=== PATIENT | female | born 1980 ===

== ENCOUNTER 2025-05-05 06:47 | Outpatient (REF) | payer OTHER, SELFPAY ==
--- NOTE | ~2025-05-05 | US_ITS ---
CLINICAL HISTORY: STRING NOT VISUALIZED ON EXAM, CHECK IUD PLACEMENT US pelvis transvaginal and transabdominal Comparison: None provided Findings: Transvaginal and transabdominal scanning performed. Anteverted uterus is 8.4 cm length. Normal myometrium. No endometrial lesion, 4 mm thickness. IUD appears properly positioned. Right ovary 3.3 x 1.8 x 2.4 cm. Left ovary 3.5 x 2.5 x 3.0 cm. Normal color Doppler of both ovaries. No free fluid. IMPRESSION: 1. IUD is properly positioned within the endometrial canal. Unremarkable pelvic ultrasound. This document has been electronically signed by: Rita Stark MD on 05/06/2025 10:39:57
== END 2025-05-05 06:48 | disposition home or self-care (01) ==
LOC: HO.UMASIMG 06:47
PROVIDERS: Visit Provider Family Medicine
DX: Z30.431 Encounter for routine checking of intrauterine contraceptive device (principal); R71.8 Other abnormality of red blood cells
CPT/HCPCS: 76830; 76856

== ENCOUNTER → 2025-05-05 15:30 | Outpatient (BNV) | payer OTHER, SELFPAY | PROVIDERS: Visit Provider Radiology Diagnostic Radiology | DX: Z30.431 Encounter for routine checking of intrauterine contraceptive device (principal) | CPT/HCPCS: 76830; 76856 ==